=== PATIENT | female | born 1940 | race Caucasian/White ===

== ENCOUNTER 2017-05-25 11:23 | Emergency (ER) | payer MEDICARE, OTHER ==
[2017-05-25 11:32] VITALS: BP 166/82
[2017-05-25] MEDS ORDERED: COLCHICINE 0.6 MG TABLET PO STA (12:29)
[2017-05-25] MEDS ORDERED: predniSONE 20 MG TABLET PO STA (12:30)
[2017-05-25] MEDS ORDERED: predniSONE 20 MG TABLET ONE (12:32)
--- NOTE | 2017-05-25 12:32 | ED Physician Documentation ---
History of Present Illness - Stated complaint Stated Complaint: LEFT SWOLLEN FOOT - Chief complaint Chief Complaint: Ext Problem - History obtained from History obtained from: Patient - History of Present Illness Timing: How many days ago (2) Pain level max: 6 Pain level now: 6 Improved by: rest Worsened by: walking - Additonal information Additional information: Patient is a marnie 76-year-old woman who presents to the emergency department with left foot swelling. States that this started about 2 days ago and has progressed since that time. Is unable to get into see her primary care doctor for another 5 days. She took Motrin without relief at home. Denies any injuries. Review of Systems Constitutional: denies: Fever, Chills Skin: denies: Rash Neurologic: denies: Headache PD PAST MEDICAL HISTORY - Past Medical History Past Medical History: Yes Cardiovascular: Other Respiratory: COPD Endocrine/Autoimmune: None, HyPOthyroidism : Incontinence Other Past Medical History: heart attack (Major) - Past Surgical History Past Surgical History: Yes General: Appendectomy, Colonoscopy Cardiovascular: Other HEENT: Tonsil/Adenoidectomy Derm: Skin cancer surgery - Present Medications Home Medications: Ambulatory Orders Medication Instructions Recorded Confirmed Levothyroxine [Synthroid] 12.5 mg PO DAILY 05/25/17 05/25/17 Lisinopril 25 mg PO BID 05/25/17 05/25/17 Naproxen 500 mg PO BID PRN #10 tablet 05/25/17 Pravastatin [Pravachol] 50 mg PO DAILY 05/25/17 05/25/17 Prednisone 20 mg PO DAILY #5 tablet 05/25/17 hydroCHLOROthiazide [Hydrodiuril] 25 mg PO DAILY 05/25/17 05/25/17 - Allergies Allergies/Adverse Reactions: Allergies Allergy/AdvReac Type Severity Reaction Status Date / Time No Known Drug Allergies Allergy Verified 05/25/17 11:33 - Social History Does the pt smoke?: No Does the pt drink ETOH?: Yes ETOH Use: Beer Does the pt have substance abuse?: No - Immunizations Immunizations are current?: No - POLST Patient has POLST: No PD ED PE NORMAL - Vitals Vital signs reviewed: Yes - General General: Alert and oriented X 3, No acute distress - Derm Derm: Warm and dry - Extremities Extremities: Other (Left foot - Tenderness and swelling to the first metacarpophalangeal joint. There is mild erythema extending from this over the dorsum of the foot. It is swollen and slightly erythematous. No increased warmth. There is tenderness with range of motion of the first MCP joint. Neurovascularly intact. No lymphangitic spread) - Neuro Neuro: Alert and oriented X 3 - Psych Psych: Normal mood, Normal affect Results - Vitals Vitals: Vital Signs - 24 hr 05/25/17 11:30 Temperature 36.6 C Heart Rate 75 Respiratory 18 Rate Blood Pressure 166/82 H O2 Saturation 98 Oxygen O2 Source Room air PD MEDICAL DECISION MAKING - ED course Complexity details: considered differential, d/w patient ED course: Patient is a 76-year-old female who presents to the emergency department what appears to be gout of the left foot. Does not appear to be infectious at this time. We will place her on colchicine and a small dose of prednisone. We will also place her on nonsteroidal anti-inflammatory medications for home. We will have her follow-up closely with her doctor. Patient will return if she fails to improve in the next 24-36 hours. Patient counseled regarding signs and symptoms for which I believe and urgent re-evaluation would be necessary. Patient with good understanding of and agreement to plan and is comfortable going home at this time This document was made in part using voice recognition software. While efforts are made to proofread this document, sound alike and grammatical errors may occur. Departure - Departure Disposition: 01 Home, Self Care Clinical Impression: Acute gout Qualifiers: Gout site: foot Gout etiology: unspecified cause Laterality: left Qualified Code(s): M10.9 - Gout, unspecified Condition: Good Instructions: ED Arthritis Gout, ED Diet Gout Follow-Up: Viraj Posadas MD [Primary Care Provider] - Within 1 week Prescriptions: Naproxen 500 mg PO BID PRN #10 tablet PRN Reason: foot pain Prednisone 20 mg PO DAILY #5 tablet Comments: Return if you worsen. This should greatly improve in the next 24-36 hours. If you are worsening, please return to the emergency department. Your blood pressure was elevated today on check in to the emergency department. This does not mean that you have hypertension, it is a common phenomenon to check into the emergency department and have elevated blood pressure. I recommend that you see your primary care physician within the week to have it rechecked when you're feeling better.
== END 2017-05-25 12:56 | disposition home or self-care (01) ==
LOC: ED 11:23
DX: M10.072 Idiopathic gout, left ankle and foot (principal); R03.0 Elevated blood-pressure reading, without diagnosis of hypertension
CPT/HCPCS: 99283; A9270; J7512

== ENCOUNTER 2017-06-03 15:27 | Outpatient (CLI) | payer MEDICARE, OTHER ==
[2017-06-03 11:51] LABS: BASOPHILS # (AUTO) 0.1 10^3/uL (0.0-0.1); BASOPHILS % (AUTO) 0.8 %; EOSINOPHILS # (AUTO) 0.2 10^3/uL (0.0-0.7); EOSINOPHILS % (AUTO) 2.2 %; HCT - HEMATOCRIT 41.5 % (37.0-47.0); HGB - HEMOGLOBIN 13.9 g/dL (12.0-16.0); LYMPHOCYTES # (AUTO) 1.4 10^3/uL (1.5-3.5); LYMPHOCYTES % (AUTO) 15.1 %; MEAN CORPUSCULAR HEMOGLOBIN 30.7 pg (27.0-31.0); MEAN CORPUSCULAR HGB CONC 33.5 g/dL (32.0-36.0); MEAN CORPUSCULAR VOLUME 91.6 fL (81.0-99.0); MEAN PLATELET VOLUME 7.7 fL (7.9-10.8); MONOCYTES # (AUTO) 0.9 10^3/uL (0.0-1.0); MONOCYTES % (AUTO) 9.8 %; NEUTROPHILS # (AUTO) 6.6 10^3/uL (1.5-6.6); NEUTROPHILS % (AUTO) 72.1 %; RED BLOOD COUNT 4.53 10^6/uL (4.20-5.40); RED CELL DISTRIBUTION WIDTH 13.5 % (12.0-15.0); UNCORRECTED WHITE BLOOD COUNT 9.1 x10^3/uL; WHITE BLOOD COUNT 9.1 x10^3/uL (4.8-10.8)
[2017-06-03 12:17] LABS: ALBUMIN/GLOBULIN RATIO 1.3 (1.0-2.2); BUN - BLOOD UREA NITROGEN 26 mg/dL (6-20); CALCIUM 9.3 mg/dL (8.5-10.3); CARBON DIOXIDE - CO2 26 mmol/L (21-32); CHLORIDE 101 mmol/L (101-111); CHOL/HDL RATIO 3.1 (<4.4); CHOLESTEROL 170 mg/dL; CREATININE 1.2 mg/dL (0.4-1.0); GFR - MDRD 44 (>89); GLUCOSE 112 mg/dL (70-100); HDL CHOLESTEROL 55 mg/dL; HEMOGLOBIN A1C 0.57 g/dL; LDL/HDL RATIO 1.7 (<4.4); POTASSIUM 4.5 mmol/L (3.5-5.0); SODIUM 136 mmol/L (135-145); TOTAL PROTEIN 7.2 g/dL (6.7-8.2); TRIGLYCERIDES 120 mg/dL; VLDL CHOLESTEROL 24 mg/dL
== END 2017-06-03 15:28 | disposition home or self-care (01) ==
LOC: LAB.F 15:27
PROVIDERS: ATTEND Family Medicine
DX: Z00.00 Encounter for general adult medical examination without abnormal findings (principal); E03.9 Hypothyroidism, unspecified; R73.9 Hyperglycemia, unspecified
CPT/HCPCS: 36415; 80053; 80061; 83036; 84443; 85025

== ENCOUNTER 2017-10-21 20:04 | Outpatient (CLI) | payer MEDICARE, OTHER ==
[2017-10-21 18:15] LABS: BASOPHILS # (AUTO) 0.1 10^3/uL (0.0-0.1); BASOPHILS % (AUTO) 0.9 %; EOSINOPHILS # (AUTO) 0.2 10^3/uL (0.0-0.7); EOSINOPHILS % (AUTO) 2.1 %; HCT - HEMATOCRIT 40.5 % (37.0-47.0); HGB - HEMOGLOBIN 13.4 g/dL (12.0-16.0); LYMPHOCYTES # (AUTO) 1.4 10^3/uL (1.5-3.5); LYMPHOCYTES % (AUTO) 19.9 %; MEAN CORPUSCULAR HEMOGLOBIN 30.7 pg (27.0-31.0); MEAN CORPUSCULAR HGB CONC 33.1 g/dL (32.0-36.0); MEAN CORPUSCULAR VOLUME 92.6 fL (81.0-99.0); MEAN PLATELET VOLUME 7.7 fL (7.9-10.8); MONOCYTES # (AUTO) 0.7 10^3/uL (0.0-1.0); MONOCYTES % (AUTO) 9.4 %; NEUTROPHILS # (AUTO) 4.8 10^3/uL (1.5-6.6); NEUTROPHILS % (AUTO) 67.7 %; NUCLEATED RED BLOOD CELLS AUTO 0.1 /100WBC; RED BLOOD COUNT 4.38 10^6/uL (4.20-5.40); RED CELL DISTRIBUTION WIDTH 13.2 % (12.0-15.0); UNCORRECTED WHITE BLOOD COUNT 7.1 x10^3/uL; WHITE BLOOD COUNT 7.1 x10^3/uL (4.8-10.8)
[2017-10-21 19:00] LABS: ALBUMIN/GLOBULIN RATIO 1.3 (1.0-2.2); BILIRUBIN,TOTAL 0.8 mg/dL (0.2-1.0); CALCIUM 9.2 mg/dL (8.5-10.3); CREATININE 1.3 mg/dL (0.4-1.0); POTASSIUM 4.2 mmol/L (3.5-5.0); TOTAL PROTEIN 7.4 g/dL (6.7-8.2)
[2017-10-21 20:23] LABS: HEMOGLOBIN A1C 0.56 g/dL
== END 2017-10-21 20:05 | disposition home or self-care (01) ==
LOC: LAB.S 20:04
PROVIDERS: ATTEND Family Medicine
DX: R73.9 Hyperglycemia, unspecified (principal); E03.9 Hypothyroidism, unspecified; I25.10 Atherosclerotic heart disease of native coronary artery without angina pectoris; N28.9 Disorder of kidney and ureter, unspecified; E78.5 Hyperlipidemia, unspecified; I10 Essential (primary) hypertension
CPT/HCPCS: 36415; 80053; 83036; 84443; 85025

== ENCOUNTER 2017-12-24 14:11 | Outpatient (CLI) | payer MEDICARE, OTHER ==
--- NOTE | 2017-12-25 09:44 | XRAY Report ---
DATE OF SERVICE: 12/24/2017 TWO VIEW CHEST: 12/24/2017 CLINICAL INDICATION: Cough. COMPARISON: 02/02/2015. FINDINGS: Frontal and lateral views of the chest demonstrate changes of previous cardiac surgery. The cardiac silhouette is not enlarged. The lungs remain hyperinflated, suggestive of COPD. No focal consolidation, effusion, or pneumothorax is present. IMPRESSION: STABLE POSTOPERATIVE CHANGES. NO EVIDENCE OF ACUTE CARDIOPULMONARY DISEASE. TD: 12/25/2017 10:43
== END 2017-12-24 14:12 | disposition home or self-care (01) ==
LOC: DI.S 14:11
PROVIDERS: ATTEND Nurse Practitioner Family
DX: R05 Cough (principal)
CPT/HCPCS: 71046

== ENCOUNTER 2018-02-07 11:11 | Outpatient (CLI) | payer MEDICARE, OTHER | END 2018-02-07 11:12 | disposition home or self-care (01) | LOC: LAB.F 11:11 | PROVIDERS: ATTEND Nurse Practitioner Family | DX: M79.672 Pain in left foot (principal) | CPT/HCPCS: 36415; 84550 ==

== ENCOUNTER 2018-04-29 11:30 | Outpatient (CLI) | payer MEDICARE, OTHER ==
[2018-04-29 17:21] LABS: BILIRUBIN,URINE NEGATIVE (NEGATIVE); GLUCOSE, URINE (UA) NEGATIVE (NEGATIVE); KETONES,URINE (UA) NEGATIVE (NEGATIVE); LEUKOCYTE ESTERASE, URINE NEGATIVE (NEGATIVE); NITRITE,URINE NEGATIVE (NEGATIVE); OCCULT BLOOD,URINE NEGATIVE (NEGATIVE); PH,URINE 5.5 PH (5.0-7.5); PROTEIN,URINE NEGATIVE (NEGATIVE); UROBILINOGEN,URINE 0.2 (NORMAL) E.U./dL (NORMAL)
[2018-04-29 17:35] LABS: CLARITY,URINE CLEAR (CLEAR); RBC,URINE 0-5 /HPF (0-5)
[2018-04-29 17:36] LABS: BACTERIA,URINE None Seen /HPF (None Seen); SQUAMOUS EPITHELIAL CELL,UR NONE SEEN (<= Few)
== END 2018-04-29 11:31 ==
LOC: LAB.R 11:30
PROVIDERS: ATTEND Obstetrics & Gynecology
DX: R82.99 Other abnormal findings in urine (principal)
CPT/HCPCS: 81001; 87086

== ENCOUNTER 2018-05-26 08:00 | Outpatient (CLI) | END 2018-05-26 08:01 | disposition home or self-care (01) ==

== ENCOUNTER 2019-04-06 08:00 | Outpatient (CLI) | payer MEDICARE, OTHER ==
[2019-04-06 18:27] LABS: CHOL/HDL RATIO 4.1 (<4.4); CHOLESTEROL 232 mg/dL; HDL CHOLESTEROL 57 mg/dL; LDL CHOLESTEROL,CALCULATED 148 mg/dL; LDL/HDL RATIO 2.6 (<4.4); VLDL CHOLESTEROL 27 mg/dL
== END 2019-04-06 23:59 | disposition home or self-care (01) ==
LOC: LAB.S 08:00
PROVIDERS: ATTEND Nurse Practitioner Family
DX: E78.5 Hyperlipidemia, unspecified (principal)
CPT/HCPCS: 36415; 80061; 83721; 84443

== ENCOUNTER 2019-10-12 08:11 | Outpatient (CLI) | payer MEDICARE, OTHER ==
[2019-10-12 10:15] LABS: BASOPHILS # (AUTO) 0.1 10^3/uL (0.0-0.1); EOSINOPHILS # (AUTO) 0.2 10^3/uL (0.0-0.7); HGB - HEMOGLOBIN 13.3 g/dL (12.0-16.0); LYMPHOCYTES # (AUTO) 1.9 10^3/uL (1.5-3.5); MEAN CORPUSCULAR HEMOGLOBIN 30.4 pg (27.0-31.0); MEAN CORPUSCULAR VOLUME 95.2 fL (81.0-99.0); MEAN PLATELET VOLUME 9.7 fL (7.9-10.8); MONOCYTES # (AUTO) 0.7 10^3/uL (0.0-1.0); MONOCYTES % (AUTO) 9.5 %; NEUTROPHILS # (AUTO) 4.8 10^3/uL (1.5-6.6); PLT - PLATELET COUNT 243 10^3/uL (130-450); RED BLOOD COUNT 4.37 10^6/uL (4.20-5.40); RED CELL DISTRIBUTION WIDTH 12.5 % (12.0-15.0); WHITE BLOOD COUNT 7.7 x10^3/uL (4.8-10.8)
[2019-10-12 10:37] LABS: ALBUMIN 4.2 g/dL (3.2-5.5); ALBUMIN/GLOBULIN RATIO 1.2 (1.0-2.2); ALKALINE PHOSPHATASE 56 IU/L (42-121); ALT ALANINE AMINOTRANSFERASE 19 IU/L (10-60); AST ASPARTATE AMINOTRANSFERASE 19 IU/L (10-42); BILIRUBIN,TOTAL 0.8 mg/dL (0.2-1.0); BUN - BLOOD UREA NITROGEN 36 mg/dL (6-20); CALCIUM 9.3 mg/dL (8.5-10.3); CARBON DIOXIDE - CO2 25 mmol/L (21-32); CHLORIDE 102 mmol/L (101-111); CHOL/HDL RATIO 3.3 (<4.4); CHOLESTEROL 179 mg/dL; CREATININE 1.2 mg/dL (0.4-1.0); GFR - MDRD 43 (>89); GLUCOSE 112 mg/dL (70-100); HDL CHOLESTEROL 55 mg/dL; LDL CHOLESTEROL,CALCULATED 91 mg/dL; LDL/HDL RATIO 1.7 (<4.4); SODIUM 137 mmol/L (135-145); TOTAL PROTEIN 7.8 g/dL (6.7-8.2); VLDL CHOLESTEROL 33 mg/dL
== END 2019-10-12 08:12 | disposition home or self-care (01) ==
LOC: LAB.S 08:11
PROVIDERS: ATTEND Registered Nurse
DX: I10 Essential (primary) hypertension (principal); I25.10 Atherosclerotic heart disease of native coronary artery without angina pectoris; J44.9 Chronic obstructive pulmonary disease, unspecified
CPT/HCPCS: 36415; 80053; 80061; 83721; 84443; 85025

== ENCOUNTER 2019-12-08 14:10 | Outpatient (CLI) | payer MEDICARE, OTHER ==
--- NOTE | 2019-12-08 16:24 | XRAY Report ---
Reason: GOUT, ACUTE, LEFT FOOT Procedure Date: 12/08/2019 Accession Number: [id number] / [id number] Procedure: XRS - Foot 3 View LT CPT Code: Final Report FULL RESULT: EXAM: LEFT FOOT RADIOGRAPHY EXAM DATE: 12/08/2019 02:23 PM. CLINICAL HISTORY: GOUT, ACUTE, LEFT FOOT. COMPARISON: None. TECHNIQUE: 3 views. FINDINGS: Bones: No definite fracture or other bone lesion. Joints: Joint spaces generally well preserved. Subtle erosion along the dorsomedial surface of the first metatarsal head. Soft Tissues: Soft tissue swelling. IMPRESSION: Gout. RADIA
[2019-12-08 17:21] LABS: BILIRUBIN,URINE NEGATIVE (NEGATIVE); GLUCOSE, URINE (UA) NEGATIVE (NEGATIVE); KETONES,URINE (UA) NEGATIVE (NEGATIVE); LEUKOCYTE ESTERASE, URINE NEGATIVE (NEGATIVE); NITRITE,URINE NEGATIVE (NEGATIVE); OCCULT BLOOD,URINE NEGATIVE (NEGATIVE); PROTEIN,URINE NEGATIVE (NEGATIVE); UROBILINOGEN,URINE 0.2 (NORMAL) E.U./dL (NORMAL)
[2019-12-08 17:31] LABS: BACTERIA,URINE Few /HPF (None Seen); CLARITY,URINE HAZY (CLEAR); RBC,URINE 0-5 /HPF (0-5); SQUAMOUS EPITHELIAL CELL,UR FEW Squamous (<= Few)
[2019-12-09 07:04] LABS: ALBUMIN 4.1 g/dL (3.2-5.5); ALBUMIN/GLOBULIN RATIO 1.1 (1.0-2.2); BILIRUBIN,TOTAL 0.9 mg/dL (0.2-1.0); CALCIUM 9.7 mg/dL (8.5-10.3); CREATININE 1.1 mg/dL (0.4-1.0); TOTAL PROTEIN 7.8 g/dL (6.7-8.2)
== END 2019-12-08 14:11 | disposition home or self-care (01) ==
LOC: DI.S 14:10
PROVIDERS: ATTEND Family Medicine
DX: M10.09 Idiopathic gout, multiple sites (principal); N28.9 Disorder of kidney and ureter, unspecified
CPT/HCPCS: 36415; 80053; 81001; 84550

== ENCOUNTER 2020-01-21 08:30 | Outpatient (CLI) | payer MEDICARE, OTHER ==
--- NOTE | 2020-01-21 10:22 | Mammography Report ---
Reason: ROUTINE MAMMO Procedure Date: 01/21/2020 Accession Number: [id number] / [id number] Procedure: MGS - Screening Mammo Dig Bilat CPT Code: Final Report FULL RESULT: EXAM: Screening Mammo Dig Bilat DATE: 01/21/2020 8:53 AM CLINICAL HISTORY: Screening encounter. History of benign left breast biopsy, excisional type in 1984. TECHNIQUE: (B) - Bilateral CC and MLO views were obtained. COMPARISON: 03/25/2014 through 02/20/2011. PARENCHYMAL PATTERN: (A) - The breast(s) demonstrate(s) scattered fibroglandular densities. FINDINGS: In the left lateral breast at the 3:00 position approximately 4.5 cm from the nipple is a isodense approximately 0.6 cm nodule, possibly an intramammary lymph node. This finding should be clarified with additional spot views and ultrasound. There are no suspicious masses, calcifications, or areas of distortion in the right breast. IMPRESSION: Incomplete examination. BI-RADS category 0. RECOMMENDATION: (ADDMU) - Additional views using both Mammography and Ultrasound recommended. Left breast BI-RADS CATEGORY: (0) - Incomplete Examination - need additional evaluation. STANDARD QUALIFYING STATEMENTS: 1. This examination was reviewed with the aid of Computer-Aided Detection (CAD). 2. A negative or benign imaging report should not preclude biopsy if clinically suspicious findings are present. 3. Dense breasts may obscure an underlying neoplasm. 4. This examination was reviewed without the aid of 3D breast imaging (tomosynthesis).
== END 2020-01-21 08:31 | disposition home or self-care (01) ==
LOC: DI.S 08:30
PROVIDERS: ATTEND Internal Medicine
DX: Z12.31 Encounter for screening mammogram for malignant neoplasm of breast (principal); R92.8 Other abnormal and inconclusive findings on diagnostic imaging of breast
CPT/HCPCS: 77067

== ENCOUNTER 2020-05-03 09:33 | Outpatient (CLI) | payer MEDICARE, OTHER ==
--- NOTE | 2020-05-04 12:11 | Mammography Report ---
UNILATERAL LEFT DIGITAL DIAGNOSTIC MAMMOGRAM 3D/2D WITH CAD: 05/03/2020 CLINICAL: Additional evaluation requested from prior study. Comparison is made to exams dated: 01/21/2020 mammogram, 03/25/2014 mammogram, 10/03/2012 mammogram, 01/31/2011 mammogram, 06/06/2009 mammogram, and 01/31/2009 mammogram - [facility]. The tis cindy of left breast is heterogeneously dense. This may lower the sensitivity of mammography. Current study was also evaluated with a Computer Aided Detection (CAD) system. There is a 5 mm oval equal density mass with a circumscribed margin in the left breast at 4 o'clock a nterior depth. This is seen in additional views. No other significant masses or calcifications are seen in the breast. IMPRESSION: INCOMPLETE: NEEDS ADDITIONAL IMAGING EVALUATION The 5 mm oval equal density mass in the left breast is indeterminate. An ultrasound is recommended. This was performed immediately following this exam. This exam was interpreted at Station ID: [id number]. NOTE: For mammograms, a report in lay terms will be sent to the patient. Approximately 15% of breast malignancies will not be visualized mammographically. In the management of a palpable breast mass, a negative mammogram must not discourage biopsy of a clinically suspicious lesion. Electronically Signed By: Echo elizalde/:05/03/2020 11:12:11 ACR BI-RADS Category 0: Incomplete 3340F PARENCHYMAL PATTERN: (D) - The breast(s) demonstrate(s) heterogeneously dense fibroglandular gem cavazos. BI-RADS CATEGORY: (0) - 0 Ultrasound [id number] Immediate follow-up LATERALITY: (B)
--- NOTE | 2020-05-04 12:12 | Ultrasound Report ---
LIMITED ULTRASOUND OF LEFT BREAST: 05/03/2020 CLINICAL: Patient returns today to evaluate a density in the left breast. Comparison is made to exams dated: 05/03/2020 mammogram, 01/21/2020 mammogram, 03/25/2014 mammogram, 10/03/2012 mammogram, 01/31/2011 mammogram, and 06/06/2009 mammogram - [facility]. Color flow and real-time ultrasound of the left breast 3-4 o'clock region were performed. Nielsen scal e images of the real-time examination were reviewed. There is a 0.5 cm x 0.4 cm x 0.3 cm oval cyst with a smooth internal wall in the left breast at 4 o'c lock anterior depth 3 cm from the nipple. This oval cyst is anechoic with a well-defined boundary an d posterior acoustic enhancement. This correlates with mammography findings. Color flow imaging dem onstrates that there is no vascularity present. IMPRESSION: BENIGN There is no sonographic evidence of malignancy. The 0.5 cm x 0.4 cm x 0.3 cm oval cyst in the left breast is consistent with a simple cyst and is luis a ign. Return to annual mammogram screening schedule is recommended. Findings and recommendations were conveyed to the patient at time of exam. This exam was interpreted at Station ID: [id number]. Electronically Signed By: Echo elizalde/:05/03/2020 12:42:00 Ultrasound BI-RADS: 2 Benign BI-RADS CATEGORY: (2) - 2 RECOMMENDATION: (ANNUAL) - Recommend routine annual screening mammography. [id number] return to screening LATERALITY: (B)
== END 2020-05-03 09:34 | disposition home or self-care (01) ==
LOC: DI 09:33
PROVIDERS: ATTEND Internal Medicine
DX: N60.02 Solitary cyst of left breast (principal)
CPT/HCPCS: 76642

== ENCOUNTER 2021-02-16 13:10 | Outpatient (CLI) | payer MEDICARE, OTHER | END 2021-02-16 13:11 | disposition home or self-care (01) | LOC: RT 13:10 | PROVIDERS: ATTEND Internal Medicine | DX: R06.00 Dyspnea, unspecified (principal) | CPT/HCPCS: 94060 ==

== ENCOUNTER 2021-02-20 07:35 | Outpatient (CLI) | payer MEDICARE, OTHER ==
[2021-02-20 14:09] LABS: BASOPHILS # (AUTO) 0.1 10^3/uL (0.0-0.1); BASOPHILS % (AUTO) 0.7 %; EOSINOPHILS # (AUTO) 0.2 10^3/uL (0.0-0.7); EOSINOPHILS % (AUTO) 2.9 %; HCT - HEMATOCRIT 37.9 % (37.0-47.0); HGB - HEMOGLOBIN 11.9 g/dL (12.0-16.0); LYMPHOCYTES # (AUTO) 1.5 10^3/uL (1.5-3.5); LYMPHOCYTES % (AUTO) 17.8 %; MEAN CORPUSCULAR HEMOGLOBIN 29.2 pg (27.0-31.0); MEAN CORPUSCULAR HGB CONC 31.4 g/dL (32.0-36.0); MEAN CORPUSCULAR VOLUME 93.1 fL (81.0-99.0); MEAN PLATELET VOLUME 9.6 fL (7.9-10.8); MONOCYTES # (AUTO) 0.9 10^3/uL (0.0-1.0); MONOCYTES % (AUTO) 10.9 %; NEUTROPHILS # (AUTO) 5.7 10^3/uL (1.5-6.6); NEUTROPHILS % (AUTO) 67.2 %; PLT - PLATELET COUNT 266 10^3/uL (130-450); RED BLOOD COUNT 4.07 10^6/uL (4.20-5.40); WHITE BLOOD COUNT 8.4 x10^3/uL (4.8-10.8)
[2021-02-20 15:19] LABS: ALBUMIN/GLOBULIN RATIO 1.1 (1.0-2.2); ALKALINE PHOSPHATASE 63 IU/L (42-121); ALT ALANINE AMINOTRANSFERASE 17 IU/L (10-60); AST ASPARTATE AMINOTRANSFERASE 18 IU/L (10-42); BILIRUBIN,TOTAL 0.8 mg/dL (0.2-1.0); BUN - BLOOD UREA NITROGEN 34 mg/dL (6-20); CARBON DIOXIDE - CO2 22 mmol/L (21-32); CHLORIDE 106 mmol/L (101-111); CHOLESTEROL 162 mg/dL; CK- CREATINE KINASE 47 IU/L (22-269); CREATININE 1.1 mg/dL (0.4-1.0); GFR - MDRD 48 (>89); GLUCOSE 109 mg/dL (70-100); HDL CHOLESTEROL 54 mg/dL; LDL CHOLESTEROL,CALCULATED 77 mg/dL; LDL/HDL RATIO 1.4 (<4.4); POTASSIUM 4.2 mmol/L (3.5-5.0); SODIUM 135 mmol/L (135-145); TOTAL PROTEIN 7.7 g/dL (6.7-8.2); TRIGLYCERIDES 154 mg/dL; URIC ACID 7.8 mg/dL (2.6-7.2); VLDL CHOLESTEROL 31 mg/dL
[2021-02-20 19:29] LABS: ESTIMATED AVERAGE GLUCOSE 126 mg/dL (70-100)
== END 2021-02-20 07:36 | disposition home or self-care (01) ==
LOC: LAB.S 07:35
PROVIDERS: ATTEND Internal Medicine
DX: I10 Essential (primary) hypertension (principal); R06.09 Other forms of dyspnea; R73.01 Impaired fasting glucose; R53.83 Other fatigue; M10.9 Gout, unspecified; Z79.899 Other long term (current) drug therapy; I25.10 Atherosclerotic heart disease of native coronary artery without angina pectoris
CPT/HCPCS: 36415; 80053; 80061; 82550; 83036; 83721; 83880; 84443; 84550; 85025

== ENCOUNTER 2021-02-28 09:13 | Outpatient (CLI) | payer MEDICARE, OTHER ==
--- NOTE | 2021-02-28 17:31 | CT Report ---
PROCEDURE: CHEST WO INDICATIONS: HX OF SHORTNESS OF BREATH, SCREENING FOR LUNG CA TECHNIQUE: Noncontrast 5 mm thick sections acquired from the pulmonary apices to the posterior costophrenic angl es. 7 mm thick coronal and sagittal MIP reformats were then acquired. For radiation dose reduction, the following was used: automated exposure control, adjustment of mA and/or kV according to patient size. COMPARISON: FINDINGS: Image quality: Excellent. Lungs and pleura: No acute air space opacities. No pleural effusions or pneumothorax. Central and peripheral airways are patent and normal in caliber. Note is made of pulmonary hyperexpansion and wh at appears to be centrilobular emphysema. Mediastinum: Heart size is normal. Moderate coronary artery calcifications. 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 No pericardial effusion. No mediastinal adenopathy by size criteria. Thoracic aorta and central pulmo nary arteries are normal in size. Esophagus is normal in caliber. No hiatal hernia. Bones and chest wall: No suspicious bony lesions. No vertebral body compression fractures. No axil ben or supraclavicular adenopathy by size criteria. The thyroid is normal in size. Abdomen: Visualized upper abdominal solid organs and bowel loops appear normal in the absence of con trast. IMPRESSION: Pulmonary hyperexpansion, centrilobular emphysema, but no evidence of early manifestation of lung car cinoma. Prior CABG. Lung RADS category 1, follow-up CT scanning utilizing low-dose noncontrast technique is recommended i n one year. Reviewed by: Missael Araya MD on 02/28/2021 5:30 PM PDT Approved by: Missael Araya MD on 02/28/2021 5:30 PM PDT Station ID: [id number]
== END 2021-02-28 09:14 | disposition home or self-care (01) ==
LOC: DI 09:13
PROVIDERS: ATTEND Internal Medicine
DX: Z12.2 Encounter for screening for malignant neoplasm of respiratory organs (principal); J43.2 Centrilobular emphysema; Z95.1 Presence of aortocoronary bypass graft

== ENCOUNTER 2021-03-21 08:58 | Outpatient (CLI) | payer MEDICARE, OTHER ==
--- NOTE | 2021-03-22 13:41 | Mammography Report ---
BILATERAL DIGITAL SCREENING MAMMOGRAM 3D/2D: 03/21/2021 CLINICAL: Routine screening. Routine screening. Routine screening. Comparison is made to exams dated: 05/03/2020 mammogram, 01/21/2020 mammogram, 03/25/2014 mammogram, and 10/03/2012 mammogram - [facility]. There are scattered fibroglandular elements in both breasts. No significant masses, calcifications, or other findings are seen in either breast. There has been no significant interval change. IMPRESSION: NEGATIVE There is no mammographic evidence of malignancy. A 1 year screening mammogram is recommended. This exam was interpreted at Station ID: [id number]. NOTE: For mammograms, a report in lay terms will be sent to the patient. Approximately 15% of breast malignancies will not be visualized mammographically. In the management of a palpable breast mass, a negative mammogram must not discourage biopsy of a clinically suspicious lesion. Electronically Signed By: Hugo Johnson M.D. slc/penrad:03/21/2021 09:47:19 ACR BI-RADS Category 1: Negative 3341F PARENCHYMAL PATTERN: (A) - The breast(s) demonstrate(s) scattered fibroglandular densities. BI-RADS CATEGORY: (1) - 1 RECOMMENDATION: (ANNUAL) - Recommend routine annual screening mammography. [id number] 1 year screening LATERALITY: (B)
== END 2021-03-21 08:59 | disposition home or self-care (01) ==
LOC: DI.S 08:58
PROVIDERS: ATTEND Internal Medicine
DX: Z12.31 Encounter for screening mammogram for malignant neoplasm of breast (principal)

== ENCOUNTER 2021-04-25 08:00 | Outpatient (CLI) | payer MEDICARE, OTHER ==
--- NOTE | 2021-04-25 16:27 | XRAY Report ---
PROCEDURE: Knee 4 View LT INDICATIONS: OSTEOARTHRITIS OF LEFT KNEE TECHNIQUE: 4 views of the left knee(s) were acquired. COMPARISON: None. FINDINGS: Bones: No fractures or dislocations. Mild to moderate tricompartmental osteoarthritis is seen more prominent in medial femoral tibial compartment. No suspicious bony lesions. Soft tissues: Moderate suprapatellar joint effusion is seen. No suspicious soft tissue calcification s. IMPRESSION: Mild to moderate tricompartmental osteoarthritis more prominent in medial femoral tibial compartment. Moderate suprapatellar joint effusion. No fracture or dislocation. Reviewed by: Martin Sidhu MD on 04/25/2021 4:25 PM PDT Approved by: Martin Sidhu MD on 04/25/2021 4:25 PM PDT Station ID: [id number]
== END 2021-04-25 23:59 | disposition home or self-care (01) ==
LOC: DI.S 08:00
PROVIDERS: ATTEND Physician Assistant
DX: M17.12 Unilateral primary osteoarthritis, left knee (principal); M25.462 Effusion, left knee

== ENCOUNTER 2022-02-12 22:40 | Outpatient (CLI) | payer MEDICARE, OTHER | END 2022-02-12 22:41 | disposition short-term general hospital (02) | LOC: EMS 22:40 | DX: G89.18 Other acute postprocedural pain (principal); M25.462 Effusion, left knee; M79.89 Other specified soft tissue disorders | CPT/HCPCS: A0425; A0429 ==

== ENCOUNTER 2022-03-06 11:28 | Outpatient (CLI) | payer MEDICARE, OTHER ==
[2022-03-06 11:39] LABS: BASOPHILS # (AUTO) 0.1 10^3/uL (0.0-0.1); BASOPHILS % (AUTO) 1.3 %; EOSINOPHILS # (AUTO) 0.9 10^3/uL (0.0-0.7); EOSINOPHILS % (AUTO) 12.6 %; HCT - HEMATOCRIT 31.3 % (37.0-47.0); HGB - HEMOGLOBIN 9.9 g/dL (12.0-16.0); LYMPHOCYTES # (AUTO) 0.8 10^3/uL (1.5-3.5); LYMPHOCYTES % (AUTO) 12.1 %; MEAN CORPUSCULAR HEMOGLOBIN 29.2 pg (27.0-31.0); MEAN CORPUSCULAR HGB CONC 31.6 g/dL (32.0-36.0); MEAN CORPUSCULAR VOLUME 92.3 fL (81.0-99.0); MEAN PLATELET VOLUME 8.8 fL (7.9-10.8); MONOCYTES # (AUTO) 0.9 10^3/uL (0.0-1.0); MONOCYTES % (AUTO) 13.3 %; NEUTROPHILS # (AUTO) 4.2 10^3/uL (1.5-6.6); NEUTROPHILS % (AUTO) 60.4 %; PLT - PLATELET COUNT 314 10^3/uL (130-450); RED BLOOD COUNT 3.39 10^6/uL (4.20-5.40); WHITE BLOOD COUNT 6.9 x10^3/uL (4.8-10.8)
[2022-03-06 11:54] LABS: BUN - BLOOD UREA NITROGEN 23 mg/dL (6-20); CALCIUM 8.9 mg/dL (8.5-10.3); CARBON DIOXIDE - CO2 24 mmol/L (21-32); CHLORIDE 95 mmol/L (101-111); CRP - C-REACTIVE PROTEIN 1.3 mg/dL (0-1.0); GFR - MDRD 53 (>89); GLUCOSE 110 mg/dL (70-100); POTASSIUM 4.5 mmol/L (3.5-5.0); SODIUM 128 mmol/L (135-145); VANCOMYCIN,TROUGH 10.6 ug/mL (10.0-20.0)
== END 2022-03-06 11:29 | disposition home or self-care (01) ==
LOC: LAB.R 11:28
PROVIDERS: ATTEND Internal Medicine Infectious Disease
DX: T84.54XA Infection and inflammatory reaction due to internal left knee prosthesis, initial encounter (principal)
CPT/HCPCS: 80048; 80202; 85025; 85651; 86140

== ENCOUNTER 2022-03-13 08:00 | Outpatient (CLI) | payer MEDICARE, OTHER ==
[2022-03-13 13:21] LABS: BASOPHILS # (AUTO) 0.1 10^3/uL (0.0-0.1); BASOPHILS % (AUTO) 1.5 %; EOSINOPHILS # (AUTO) 0.7 10^3/uL (0.0-0.7); EOSINOPHILS % (AUTO) 10.1 %; HCT - HEMATOCRIT 35.4 % (37.0-47.0); HGB - HEMOGLOBIN 11.2 g/dL (12.0-16.0); LYMPHOCYTES # (AUTO) 1.1 10^3/uL (1.5-3.5); LYMPHOCYTES % (AUTO) 17.2 %; MEAN CORPUSCULAR HEMOGLOBIN 29.4 pg (27.0-31.0); MEAN CORPUSCULAR HGB CONC 31.6 g/dL (32.0-36.0); MEAN CORPUSCULAR VOLUME 92.9 fL (81.0-99.0); MEAN PLATELET VOLUME 8.7 fL (7.9-10.8); MONOCYTES # (AUTO) 0.7 10^3/uL (0.0-1.0); MONOCYTES % (AUTO) 11.5 %; NEUTROPHILS # (AUTO) 3.8 10^3/uL (1.5-6.6); NEUTROPHILS % (AUTO) 59.2 %; PLT - PLATELET COUNT 277 10^3/uL (130-450); RED BLOOD COUNT 3.81 10^6/uL (4.20-5.40); RED CELL DISTRIBUTION WIDTH 15.1 % (12.0-15.0); WHITE BLOOD COUNT 6.5 x10^3/uL (4.8-10.8)
[2022-03-13 13:32] LABS: BUN - BLOOD UREA NITROGEN 28 mg/dL (6-20); CALCIUM 9.2 mg/dL (8.5-10.3); CARBON DIOXIDE - CO2 25 mmol/L (21-32); CHLORIDE 98 mmol/L (101-111); GFR - MDRD 53 (>89); GLUCOSE 98 mg/dL (70-100); POTASSIUM 4.6 mmol/L (3.5-5.0); SODIUM 133 mmol/L (135-145); VANCOMYCIN,TROUGH 14.5 ug/mL (10.0-20.0)
[2022-03-13 14:54] LABS: CRP - C-REACTIVE PROTEIN < 1.0 mg/dL (0-1.0)
== END 2022-03-13 23:59 | disposition home or self-care (01) ==
LOC: LAB.R 08:00
PROVIDERS: ATTEND Internal Medicine Infectious Disease
DX: T84.54XA Infection and inflammatory reaction due to internal left knee prosthesis, initial encounter (principal)
CPT/HCPCS: 80048; 80202; 85025; 85651; 86140

== ENCOUNTER 2022-03-20 12:24 | Outpatient (CLI) | payer MEDICARE, OTHER ==
[2022-03-20 12:34] LABS: BASOPHILS # (AUTO) 0.1 10^3/uL (0.0-0.1); BASOPHILS % (AUTO) 1.3 %; EOSINOPHILS # (AUTO) 0.6 10^3/uL (0.0-0.7); HCT - HEMATOCRIT 35.5 % (37.0-47.0); HGB - HEMOGLOBIN 11.3 g/dL (12.0-16.0); LYMPHOCYTES # (AUTO) 1.2 10^3/uL (1.5-3.5); LYMPHOCYTES % (AUTO) 14.4 %; MEAN CORPUSCULAR HEMOGLOBIN 29.6 pg (27.0-31.0); MEAN CORPUSCULAR HGB CONC 31.8 g/dL (32.0-36.0); MEAN CORPUSCULAR VOLUME 92.9 fL (81.0-99.0); MEAN PLATELET VOLUME 8.8 fL (7.9-10.8); MONOCYTES # (AUTO) 0.9 10^3/uL (0.0-1.0); MONOCYTES % (AUTO) 10.7 %; NEUTROPHILS # (AUTO) 5.5 10^3/uL (1.5-6.6); PLT - PLATELET COUNT 265 10^3/uL (130-450); RED BLOOD COUNT 3.82 10^6/uL (4.20-5.40); RED CELL DISTRIBUTION WIDTH 15.2 % (12.0-15.0); WHITE BLOOD COUNT 8.3 x10^3/uL (4.8-10.8)
[2022-03-20 12:56] LABS: BUN - BLOOD UREA NITROGEN 29 mg/dL (6-20); CALCIUM 9.3 mg/dL (8.5-10.3); CARBON DIOXIDE - CO2 24 mmol/L (21-32); CHLORIDE 97 mmol/L (101-111); GFR - MDRD 53 (>89); GLUCOSE 99 mg/dL (70-100); POTASSIUM 4.8 mmol/L (3.5-5.0); SODIUM 132 mmol/L (135-145); VANCOMYCIN,TROUGH 18.7 ug/mL (10.0-20.0)
== END 2022-03-20 12:25 | disposition home or self-care (01) ==
LOC: LAB.R 12:24
PROVIDERS: ATTEND Internal Medicine Infectious Disease
DX: T84.54XA Infection and inflammatory reaction due to internal left knee prosthesis, initial encounter (principal)
CPT/HCPCS: 80048; 80202; 85025; 85651; 86140

== ENCOUNTER 2022-03-23 07:36 | Outpatient (CLI) | payer MEDICARE, OTHER ==
[2022-03-23 15:30] LABS: BASOPHILS # (AUTO) 0.1 10^3/uL (0.0-0.1); BASOPHILS % (AUTO) 1.8 %; EOSINOPHILS # (AUTO) 0.6 10^3/uL (0.0-0.7); EOSINOPHILS % (AUTO) 7.3 %; HCT - HEMATOCRIT 37.4 % (37.0-47.0); HGB - HEMOGLOBIN 11.7 g/dL (12.0-16.0); LYMPHOCYTES % (AUTO) 13.2 %; MEAN CORPUSCULAR HEMOGLOBIN 29.5 pg (27.0-31.0); MEAN CORPUSCULAR HGB CONC 31.3 g/dL (32.0-36.0); MEAN CORPUSCULAR VOLUME 94.2 fL (81.0-99.0); MEAN PLATELET VOLUME 9.1 fL (7.9-10.8); MONOCYTES # (AUTO) 0.8 10^3/uL (0.0-1.0); MONOCYTES % (AUTO) 9.8 %; NEUTROPHILS # (AUTO) 5.3 10^3/uL (1.5-6.6); NEUTROPHILS % (AUTO) 67.5 %; PLT - PLATELET COUNT 271 10^3/uL (130-450); RED BLOOD COUNT 3.97 10^6/uL (4.20-5.40); RED CELL DISTRIBUTION WIDTH 15.2 % (12.0-15.0); WHITE BLOOD COUNT 7.9 x10^3/uL (4.8-10.8)
[2022-03-23 15:49] LABS: THYROID STIMULATING HORMONE 5.2 uIU/mL (0.34-5.60)
[2022-03-23 15:55] LABS: ALBUMIN 3.7 g/dL (3.2-5.5); ALBUMIN/GLOBULIN RATIO 0.9 (1.0-2.2); ALKALINE PHOSPHATASE 53 IU/L (42-121); ALT ALANINE AMINOTRANSFERASE 28 IU/L (10-60); AST ASPARTATE AMINOTRANSFERASE 26 IU/L (10-42); BILIRUBIN,TOTAL 0.6 mg/dL (0.2-1.0); BUN - BLOOD UREA NITROGEN 27 mg/dL (6-20); CALCIUM 9.4 mg/dL (8.5-10.3); CARBON DIOXIDE - CO2 24 mmol/L (21-32); CHLORIDE 102 mmol/L (101-111); CHOL/HDL RATIO 2.7 (<4.4); CHOLESTEROL 159 mg/dL; CREATININE 0.9 mg/dL (0.4-1.0); GFR - MDRD 60 (>89); GLUCOSE 104 mg/dL (70-100); HDL CHOLESTEROL 60 mg/dL; LDL CHOLESTEROL,CALCULATED 75 mg/dL; LDL/HDL RATIO 1.3 (<4.4); POTASSIUM 4.7 mmol/L (3.5-5.0); SODIUM 134 mmol/L (135-145); TOTAL PROTEIN 7.9 g/dL (6.7-8.2); TRIGLYCERIDES 122 mg/dL; VLDL CHOLESTEROL 24 mg/dL
== END 2022-03-23 23:59 | disposition home or self-care (01) ==
LOC: LAB.S 07:36
PROVIDERS: ATTEND Registered Nurse
DX: I10 Essential (primary) hypertension (principal); E66.9 Obesity, unspecified; E78.5 Hyperlipidemia, unspecified; E78.00 Pure hypercholesterolemia, unspecified
CPT/HCPCS: 36415; 80053; 80061; 83721; 84443; 85025

== ENCOUNTER 2023-02-20 07:44 | Outpatient (CLI) | payer MEDICARE, OTHER ==
[2023-02-20 14:44] LABS: ALBUMIN/GLOBULIN RATIO 1.1 (1.0-2.2); ALKALINE PHOSPHATASE 68 IU/L (42-121); ALT ALANINE AMINOTRANSFERASE 16 IU/L (10-60); AST ASPARTATE AMINOTRANSFERASE 19 IU/L (10-42); BILIRUBIN,TOTAL 0.7 mg/dL (0.2-1.0); BUN - BLOOD UREA NITROGEN 31 mg/dL (6-20); CARBON DIOXIDE - CO2 25 mmol/L (21-32); CHLORIDE 103 mmol/L (101-111); CHOLESTEROL 175 mg/dL; CREATININE 1.2 mg/dL (0.4-1.0); GFR - MDRD 43 (>89); GLUCOSE 116 mg/dL (70-100); HDL CHOLESTEROL 59 mg/dL; LDL CHOLESTEROL,CALCULATED 91 mg/dL; LDL/HDL RATIO 1.5 (<4.4); POTASSIUM 4.3 mmol/L (3.5-5.0); SODIUM 135 mmol/L (135-145); TOTAL PROTEIN 7.7 g/dL (6.7-8.2); TRIGLYCERIDES 126 mg/dL; VLDL CHOLESTEROL 25 mg/dL
[2023-02-20 15:02] LABS: BASOPHILS # (AUTO) 0.1 10^3/uL (0.0-0.1); BASOPHILS % (AUTO) 0.6 %; EOSINOPHILS # (AUTO) 0.2 10^3/uL (0.0-0.7); EOSINOPHILS % (AUTO) 1.8 %; HCT - HEMATOCRIT 40.3 % (37.0-47.0); HGB - HEMOGLOBIN 12.8 g/dL (12.0-16.0); LYMPHOCYTES # (AUTO) 1.6 10^3/uL (1.5-3.5); LYMPHOCYTES % (AUTO) 14.2 %; MEAN CORPUSCULAR HEMOGLOBIN 29.5 pg (27.0-31.0); MEAN CORPUSCULAR HGB CONC 31.8 g/dL (32.0-36.0); MEAN CORPUSCULAR VOLUME 92.9 fL (81.0-99.0); MEAN PLATELET VOLUME 9.3 fL (7.9-10.8); MONOCYTES # (AUTO) 0.9 10^3/uL (0.0-1.0); MONOCYTES % (AUTO) 8.3 %; NEUTROPHILS # (AUTO) 8.3 10^3/uL (1.5-6.6); NEUTROPHILS % (AUTO) 74.8 %; PLT - PLATELET COUNT 252 10^3/uL (130-450); RED BLOOD COUNT 4.34 10^6/uL (4.20-5.40); RED CELL DISTRIBUTION WIDTH 13.7 % (12.0-15.0); WHITE BLOOD COUNT 11.1 x10^3/uL (4.8-10.8)
[2023-02-20 15:11] LABS: THYROID STIMULATING HORMONE 13.65 uIU/mL (0.34-5.60)
[2023-02-20 15:45] LABS: FREE T4 (FREE THYROXINE) 1.08 ng/dL (0.58-1.64)
== END 2023-02-20 07:45 | disposition home or self-care (01) ==
LOC: LAB.S 07:44
PROVIDERS: ATTEND Nurse Practitioner Family
DX: E78.5 Hyperlipidemia, unspecified (principal); E03.9 Hypothyroidism, unspecified; I10 Essential (primary) hypertension
CPT/HCPCS: 36415; 80053; 80061; 83721; 84439; 84443; 85025

== ENCOUNTER 2023-03-21 11:42 | Outpatient (CLI) | payer MEDICARE, OTHER ==
--- NOTE | 2023-03-21 16:12 | Ultrasound Report ---
PROCEDURE: Duplex Lwr Ext Arterial Bilat INDICATIONS: BILATERAL LEG PAIN TECHNIQUE: Color and pulse Doppler interrogation was performed of both lower extremity arterial systems, with im age documentation. COMPARISON: None FINDINGS: Right lower extremity: Common femoral artery: 105 cm/sec, with triphasic flow. Deep femoral artery: 51 cm/sec, with triphasic flow. Proximal superficial femoral artery: 114 cm/sec, with triphasic flow. Mid superficial femoral artery: 76 cm/sec, with triphasic flow. Distal superficial femoral artery: 67 cm/sec, with triphasic flow. Popliteal artery: 246 cm/sec, with triphasic flow. Posterior tibial artery: 77 cm/sec, with triphasic flow. Anterior tibial artery/dorsalis pedis: 57 cm/sec, with biphasic flow. Nielsen-scale imaging description: Mild diffuse plaque Left lower extremity: Common femoral artery: 1 or 15 cm/sec, with triphasic flow. Deep femoral artery: 70 cm/sec, with triphasic flow. Proximal superficial femoral artery: 148 cm/sec, with triphasic flow. Mid superficial femoral artery: 76 cm/sec, with triphasic flow. Distal superficial femoral artery: 74 cm/sec, with triphasic flow. Popliteal artery: 77 cm/sec, with triphasic flow. Posterior tibial artery: 77 cm/sec, with triphasic flow. Anterior tibial artery/dorsalis pedis: 90 cm/sec, with triphasic flow. Nielsen-scale imaging description: Mild diffuse plaque IMPRESSION: Hemodynamically significant bilateral outflow stenoses. Reviewed by: Delbert Huggins MD on 03/21/2023 4:10 PM PDT Approved by: Delbert Huggins MD on 03/21/2023 4:10 PM PDT Station ID: [id number]
--- NOTE | 2023-03-21 16:45 | Ultrasound Report ---
PROCEDURE: Duplex Ext Veins Bilateral INDICATIONS: AUDIE RIDER TECHNIQUE: Real-time imaging, as well as color and pulse Doppler interrogation, were performed of the deep veins of both legs from the inguinal ligament to the popliteal fossa. COMPARISON: None FINDINGS: The deep veins are normally compressible, and free of intraluminal thrombus. Color and pu lse Doppler demonstrate normal phasic intravascular flow. There is normal augmentation response to d istal compression maneuver. IMPRESSION: No evidence of lower extremity DVT bilaterally. Reviewed by: Delbert Huggins MD on 03/21/2023 4:43 PM PDT Approved by: Delbert Huggins MD on 03/21/2023 4:43 PM PDT Station ID: [id number]
== END 2023-03-21 11:43 | disposition home or self-care (01) ==
LOC: DI 11:42
PROVIDERS: ATTEND Nurse Practitioner Family
DX: I70.203 Unspecified atherosclerosis of native arteries of extremities, bilateral legs (principal)
CPT/HCPCS: 93925; 93970

== ENCOUNTER 2023-04-22 20:26 | Emergency (ER) | payer MEDICARE, OTHER ==
[2023-04-22] MEDS ORDERED: SODIUM CHLORIDE 0.9% 1,000 ML IV STA (20:50)
--- NOTE | 2023-04-22 21:40 | ED Physician Documentation ---
History of Present Illness - Stated complaint Stated Complaint: ABD PX - Chief complaint Chief Complaint: Abd Pain - History obtained from History obtained from: Patient - Additonal information Additional information: The patient comes to the emergency department chief complaint of increasing abdominal cramping and distention for the last few days. She states that 3 nights ago, she began to notice the symptoms coming on. She did eat normally that day, but for the next couple of days, she stated she had no appetite at all. She tried to make herself eat some yogurt but states she just did not feel like eating and she was noticing increasing discomfort in her abdomen at the same time. She has not had a bowel movement for about 4 days and normally she has a bowel movement every day. Patient states she tried some stool softeners and a suppository with no luck. She has been nauseated a little but has not vomited. No fevers or chills. No respiratory symptoms that are new. No dysuria. The patient denies any other complaints at this time. PD PAST MEDICAL HISTORY - Past Medical History Cardiovascular: Hypertension, High cholesterol, Other Respiratory: COPD Endocrine/Autoimmune: HyPOthyroidism : Incontinence - Past Surgical History Past Surgical History: Yes General: Appendectomy, Colonoscopy Cardiovascular: Other HEENT: Tonsil/Adenoidectomy Derm: Skin cancer surgery - Present Medications Home Medications: Ambulatory Orders Medication Instructions Recorded Confirmed Aspirin Chewable [[facility] [place] 81 mg PO DAILY 07/03/20 07/03/20 Aspirin] Levothyroxine Sodium 112 mcg PO DAILY 07/03/20 07/03/20 Pravastatin Sodium 20 mg PO QPM 07/03/20 07/03/20 Ubidecarenone/Vit E Acet [Co Q-10 3 cap PO DAILY 07/03/20 07/03/20 100 mg Softgel] amLODIPine [Norvasc] 2.5 mg PO DAILY 07/03/20 07/03/20 - Allergies Allergies/Adverse Reactions: Allergies Allergy/AdvReac Type Severity Reaction Status Date / Time No Known Drug Allergies Allergy Verified 07/02/20 23:55 - Social History Does the pt smoke?: No Smoking Status: Never smoker Does the pt drink ETOH?: Yes Does the pt have substance abuse?: No - Immunizations Immunizations are current?: No - POLST Patient has POLST: No PD ED PE NORMAL - Vitals Vital signs reviewed: Yes - General General: Alert and oriented X 3, No acute distress, Well developed/nourished, Other (Well-appearing patient in no distress.) - HEENT HEENT: Atraumatic, PERRL, EOMI, Moist mucous membranes - Neck Neck: Supple, no meningeal sign - Cardiac Cardiac: RRR, No murmur, Strong equal pulses - Respiratory Respiratory: No respiratory distress, Clear bilaterally - Abdomen Abdomen: Soft, Other (Moderate diffuse tenderness, no rebound or guarding. Marked distention.) - Derm Derm: Normal color, Warm and dry, No rash - Extremities Extremities: No deformity, No edema - Neuro Neuro: Alert and oriented X 3, Other (Grossly intact) - Psych Psych: Normal mood, Normal affect Results - Vitals Vitals: Vital Signs - 24 hr 04/22/23 04/22/23 04/23/23 20:38 22:34 02:13 Temperature 36 C L Heart Rate 99 82 95 Respiratory 16 18 20 Rate Blood Pressure 124/64 169/87 H 148/67 H O2 Saturation 93 98 95 04/23/23 03:22 Temperature Heart Rate 96 Respiratory 14 Rate Blood Pressure 153/67 H O2 Saturation 96 Oxygen O2 Source Room air - Labs Labs: Laboratory Tests 04/22/23 04/22/23 04/22/23 21:45 21:45 21:45 WBC 13.8 H RBC 4.33 Hgb 12.8 Hct 39.8 MCV 91.9 MCH 29.6 MCHC 32.2 RDW 12.8 Plt Count 279 MPV 8.8 Neut # (Auto) 11.0 H Lymph # (Auto) 1.3 L Cocke # (Auto) 1.3 H Eos # (Auto) 0.1 Baso # (Auto) 0.0 Absolute Nucleated RBC 0.00 Nucleated RBC % 0.0 PT 11.8 INR 1.1 Sodium 135 Potassium 3.6 Chloride 105 Carbon Dioxide 22 Anion Gap 8.0 BUN 31 H Creatinine 1.2 H Estimated GFR (MDRD) 43 L Glucose 117 H Calcium 8.8 Total Bilirubin 0.7 AST 18 ALT 15 Alkaline Phosphatase 62 Total Protein 7.4 Albumin 3.6 Globulin 3.8 Albumin/Globulin Ratio 0.9 L Lipase 35 Urine Color Urine Clarity Urine pH Ur Specific [place] Urine Protein Urine Glucose (UA) Urine Ketones Urine Occult Blood Urine Nitrite Urine Bilirubin Urine Urobilinogen Ur Leukocyte Esterase Urine RBC Urine WBC Ur Squamous Epith Cells Urine Bacteria Ur Microscopic Review Urine Culture Comments 04/22/23 21:55 WBC RBC Hgb Hct MCV MCH MCHC RDW Plt Count MPV Neut # (Auto) Lymph # (Auto) Cocke # (Auto) Eos # (Auto) Baso # (Auto) Absolute Nucleated RBC Nucleated RBC % PT INR Sodium Potassium Chloride Carbon Dioxide Anion Gap BUN Creatinine Estimated GFR (MDRD) Glucose Calcium Total Bilirubin AST ALT Alkaline Phosphatase Total Protein Albumin Globulin Albumin/Globulin Ratio Lipase Urine Color YELLOW Urine Clarity HAZY Urine pH 6.0 Ur Specific [place] 1.020 Urine Protein TRACE Urine Glucose (UA) NEGATIVE Urine Ketones NEGATIVE Urine Occult Blood NEGATIVE Urine Nitrite NEGATIVE Urine Bilirubin NEGATIVE Urine Urobilinogen 0.2 (NORMAL) Ur Leukocyte Esterase SMALL H Urine RBC 0-5 Urine WBC 6-10 H Ur Squamous Epith Cells FEW Squamous Urine Bacteria Few Ur Microscopic Review INDICATED Urine Culture Comments INDICATED - Rads (name of study) CT abdomen pelvis Relevant Findings:: Final report received, See rad report (Adenocarcinoma sigmoid colon, large bowel obstruction) PD Medical Decision Making - ED course Complexity details: reviewed results, re-evaluated patient, considered differential, d/w patient, d/w family ED course: The patient overall was well-appearing and did not appear obstructed; however, her degree of distention and discomfort made me concerned that there was more than just simple constipation going on and I felt she should have a CT scan of the abdomen and pelvis. Her laboratory studies were unremarkable other than a mild white blood cell count elevation at 13. She was sent for CT scan of the abdomen and pelvis, which showed a thickening of the sigmoid colon concerning for adenocarcinoma, and large bowel obstruction. There were no other masses or questionable appearing lymph nodes. I initially spoke with Dr. Grullon, who is on-call for our surgical service and we discussed the pros and cons of the patient staying here. Dr. Grullon stated she was more than willing to do surgery if needed, that this would most likely end up in a permanent colostomy. There is possibility of a less invasive, open procedure if the patient went to bigger facility with colorectal surgery service. As such, it was felt most ideal if the patient could be transferred to a facility with colorectal. I did speak with [facility] who stated that it would be at least a 2 to 3-day wait before they can accept any patients. I did then speak with Dr. Olvera of surgery at [facility] and he did graciously accept the patient in transfer. I explained the whole situation to the patient who is agreeable to transfer and stated that she would like to have surgery if that is what was recommended. The patient was in a fair amount of discomfort and although she had initially declined to have Any narcotic pain medication, she did ultimately change her mind and was given Dilaudid. The patient's stomach was small and contracted on CT and I did not feel NG tube was likely to be helpful at this point in time. Additionally, the surgeons did not recommend it unless there was stomach distention or vomiting. Departure - Departure Disposition: 02 Transfer Acute Care Hosp Clinical Impression: Adenocarcinoma of sigmoid colon, Large bowel obstruction Condition: Serious
[2023-04-22 21:52] LABS: BASOPHILS % (AUTO) 0.3 %; EOSINOPHILS # (AUTO) 0.1 10^3/uL (0.0-0.7); EOSINOPHILS % (AUTO) 0.4 %; HCT - HEMATOCRIT 39.8 % (37.0-47.0); HGB - HEMOGLOBIN 12.8 g/dL (12.0-16.0); LYMPHOCYTES # (AUTO) 1.3 10^3/uL (1.5-3.5); LYMPHOCYTES % (AUTO) 9.6 %; MEAN CORPUSCULAR HEMOGLOBIN 29.6 pg (27.0-31.0); MEAN CORPUSCULAR HGB CONC 32.2 g/dL (32.0-36.0); MEAN CORPUSCULAR VOLUME 91.9 fL (81.0-99.0); MEAN PLATELET VOLUME 8.8 fL (7.9-10.8); MONOCYTES # (AUTO) 1.3 10^3/uL (0.0-1.0); MONOCYTES % (AUTO) 9.7 %; NEUTROPHILS % (AUTO) 79.6 %; PLT - PLATELET COUNT 279 10^3/uL (130-450); RED BLOOD COUNT 4.33 10^6/uL (4.20-5.40); RED CELL DISTRIBUTION WIDTH 12.8 % (12.0-15.0); WHITE BLOOD COUNT 13.8 x10^3/uL (4.8-10.8)
[2023-04-22 21:58] LABS: INR 1.1 (0.8-1.2); PT - PROTHROMBIN TIME 11.8 secs (9.9-12.6)
[2023-04-22 22:11] LABS: ALBUMIN 3.6 g/dL (3.2-5.5); ALBUMIN/GLOBULIN RATIO 0.9 (1.0-2.2); BILIRUBIN,TOTAL 0.7 mg/dL (0.2-1.0); CALCIUM 8.8 mg/dL (8.5-10.3); CREATININE 1.2 mg/dL (0.4-1.0); POTASSIUM 3.6 mmol/L (3.5-5.0); TOTAL PROTEIN 7.4 g/dL (6.7-8.2)
[2023-04-22 22:38] LABS: BILIRUBIN,URINE NEGATIVE (NEGATIVE); GLUCOSE, URINE (UA) NEGATIVE (NEGATIVE); KETONES,URINE (UA) NEGATIVE (NEGATIVE); LEUKOCYTE ESTERASE, URINE SMALL (NEGATIVE); NITRITE,URINE NEGATIVE (NEGATIVE); OCCULT BLOOD,URINE NEGATIVE (NEGATIVE); PROTEIN,URINE TRACE mg/dL (NEGATIVE); UROBILINOGEN,URINE 0.2 (NORMAL) E.U./dL (NORMAL)
[2023-04-22 22:39] LABS: CLARITY,URINE HAZY (CLEAR)
[2023-04-22 22:52] LABS: BACTERIA,URINE Few /HPF (None Seen); RBC,URINE 0-5 /HPF (0-5); SQUAMOUS EPITHELIAL CELL,UR FEW Squamous (<= Few)
[2023-04-23] MEDS ORDERED: iohexoL-300 100 ML VIAL ONE (00:49)
[2023-04-23] MEDS ORDERED: iohexoL-300 100 ML VIAL IVP ONE (01:35)
--- NOTE | 2023-04-23 01:40 | CT Report ---
PROCEDURE: ABDOMEN/PELVIS W INDICATIONS: abd pain, distention, nausea, no BM x 3 days CONTRAST: Omni 300 100ml TECHNIQUE: After the administration of intravenous contrast, 5 mm thick sections acquired from the diaphragms to the symphysis. 5 mm thick coronal and sagittal reformats were acquired. For radiation dose reducti on, the following was used: automated exposure control, adjustment of mA and/or kV according to daisha ent size. COMPARISON: None. FINDINGS: Image quality: Excellent. Lung bases:There is mild atelectasis and scarring in the lung bases. Heart: Heart is normal in size. There is a small hiatal hernia. ABDOMEN: Liver: No mass lesion. There is hypoattenuation of the liver consistent with fatty infiltration as w ell as a small region of focal fatty infiltration anteriorly in the left hepatic lobe. Gallbladder:There is a calcified gallstone within the gallbladder without wall thickening or pericho lecystic fluid. Biliary ducts: No biliary ductal dilatation. Pancreas: Unremarkable. Spleen: Normal in size. Adrenal Glands: No adrenal nodules. Kidneys and Ureters: No hydronephrosis. Stomach and Bowel: Stomach and small bowel loops are normal in caliber and wall thickness. There is segmental wall thickening in the sigmoid colon with associated marked upstream distention of the colo n and multiple air-fluid levels. Small bowel is nondistended. There is colonic diverticulosis without acute diverticulitis. Peritoneum:There is a minimal amount of free fluid in the pelvis. No free air. Ventral Wall: No hernia. Abdominal Nodes: No retroperitoneal or mesenteric adenopathy by size criteria. Vessels: Aorta and inferior vena cava are normal in size. PELVIS: Pelvic Organs: Unremarkable. Bladder: Unremarkable. Pelvic Nodes: No enlarged lymph nodes. Miscellaneous: No inguinal hernias. Bones: Visualized osseous structures demonstrate no suspicious lesions. IMPRESSION: 1. Segmental wall thickening in the sigmoid colon with marked upstream colonic distention and air-flu id levels. 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 2. No definite evidence of metastatic disease in abdomen and pelvis. Findings discussed with Dr. Calderon on 04/23/2023 at 1:35 AM. Reviewed by: Karthik Ceron MD on 04/23/2023 1:38 AM PDT Approved by: Karthik Ceron MD on 04/23/2023 1:38 AM PDT Station ID: [id number]
[2023-04-23] MEDS ORDERED: SODIUM CHLORIDE 0.9% 1,000 ML IV STA (03:17)
[2023-04-23] MEDS ORDERED: HYDROmorphone 1 MG/ML CARPUJECT IVP STA (03:19)
[2023-04-23 03:25] VITALS: BP 153/67
== END 2023-04-23 04:15 | disposition short-term general hospital (02) ==
LOC: ED 20:26
DX: C18.7 Malignant neoplasm of sigmoid colon (principal); K56.699 Other intestinal obstruction unspecified as to partial versus complete obstruction
CPT/HCPCS: 36415; 74177; 80053; 81001; 83690; 85025; 85610; 87077; 87086; 87181; 87635; 96374; 99285; J1170; Q9967; 81003

== ENCOUNTER 2023-04-23 04:17 | Outpatient (CLI) | payer MEDICARE, OTHER | END 2023-04-23 23:59 | disposition short-term general hospital (02) | LOC: EMS 04:17 | PROVIDERS: ATTEND Emergency Medicine | DX: K56.609 Unspecified intestinal obstruction, unspecified as to partial versus complete obstruction (principal) | CPT/HCPCS: A0425; A0426 ==

== ENCOUNTER 2023-05-18 11:40 | Outpatient (CLI) | payer MEDICARE, OTHER ==
[2023-05-18] MEDS ORDERED: iohexoL-300 100 ML VIAL ONE (11:56)
[2023-05-18] MEDS ORDERED: DIATRIZOATE MEGLU/DIATRIZO SOD 30 ML BOTTLE PO ONE ×2 (11:56→13:20)
[2023-05-18] MEDS ORDERED: iohexoL-300 100 ML VIAL IVP ONE (13:20)
--- NOTE | 2023-05-18 19:45 | CT Report ---
PROCEDURE: ABDOMEN/PELVIS W INDICATIONS: DIVERTICULITIS CONTRAST: Nonionic 100ml omni 300 TECHNIQUE: After the administration of nonionic intravenous and oral contrast, 5 mm thick sections acquired from the diaphragms to the symphysis. 5 mm thick coronal and sagittal reformats were acquired. For radi ation dose reduction, the following was used: automated exposure control, adjustment of mA and/or kV according to patient size. COMPARISON: 04/23/[address] FINDINGS: Image quality: Excellent. Lung bases and heart: Unremarkable. Liver: No solid mass. Gallbladder and biliary tree: No biliary distention but there appears to be a small partially calcifi ed gallstone within the gallbladder neck area. No associated gallbladder inflammation. Spleen: No splenomegaly. Pancreas: No pancreatic ductal dilation. Adrenals: No adrenal nodule. Kidneys and ureters: No hydronephrosis. No renal cystic lesion which requires follow up. No solid mas s. Bowel and peritoneum: No bowel distension. No pathologic free fluid. A transverse colon colostomy ext ends to the left anterior abdominal wall without associated operative complication or parastomal rigoberto iation. Lymph nodes: No central or retroperitoneal adenopathy. Vessels: No infrarenal aortic aneurysm. PELVIS Reproductive organs: Unremarkable. Bladder: No abnormal wall thickening, accounting for underdistension. Pelvic lymph nodes: No pelvic adenopathy by size criteria. Bones: No aggressive osseous abnormality. Other: No significant ventral or inguinal hernia. Note is made of relatively prominent diverticulosis along the sigmoid colon but no acute diverticulitis is found. Note is again made of what appears to be focal narrowing of the posterior half of the sigmoid colon as it approaches the rectosigmoid junct ion which may reflect presence of colonic malignancy given the pattern of colonic obstruction in that same area on prior CT scanning. IMPRESSION: Prior operative intervention at the transverse colon with associated abdominal ventral colostomy. The colon beyond this point extends normally into the pelvis, and previous gas distention of the colon s een 04/23/2023 has resolved. A malignant mass may be present at the posterior half of the sigmoid colon given the prior pattern of colonic obstruction and persistent mildly heterogeneous enhancement and morphology of the sigmoid co darwin in that area to the rectosigmoid junction. Reviewed by: Missael Araya MD on 05/18/2023 7:44 PM PDT Approved by: Missael Araya MD on 05/18/2023 7:44 PM PDT Station ID: [id number]
== END 2023-05-18 11:41 | disposition home or self-care (01) ==
LOC: DI 11:40
PROVIDERS: ATTEND Student in an Organized Health Care Education/Training Program
DX: K57.92 Diverticulitis of intestine, part unspecified, without perforation or abscess without bleeding (principal); Z93.3 Colostomy status
CPT/HCPCS: 74177; Q9963; Q9967

== ENCOUNTER 2023-06-07 04:15 | Outpatient (CLI) | payer MEDICARE, OTHER | END 2023-06-07 23:59 | disposition short-term general hospital (02) | LOC: EMS 04:15 | DX: R11.2 Nausea with vomiting, unspecified (principal); R50.9 Fever, unspecified; G89.18 Other acute postprocedural pain | CPT/HCPCS: A0425; A0427; A0888 ==

== ENCOUNTER 2024-02-26 07:11 | Outpatient (CLI) | payer MEDICARE, OTHER ==
[2024-02-26 14:39] LABS: BASOPHILS # (AUTO) 0.1 10^3/uL (0.0-0.1); BASOPHILS % (AUTO) 0.7 %; EOSINOPHILS # (AUTO) 0.2 10^3/uL (0.0-0.7); EOSINOPHILS % (AUTO) 2.4 %; HCT - HEMATOCRIT 41.8 % (37.0-47.0); HGB - HEMOGLOBIN 12.9 g/dL (12.0-16.0); LYMPHOCYTES # (AUTO) 1.3 10^3/uL (1.5-3.5); LYMPHOCYTES % (AUTO) 19.9 %; MEAN CORPUSCULAR HEMOGLOBIN 28.9 pg (27.0-31.0); MEAN CORPUSCULAR HGB CONC 30.9 g/dL (32.0-36.0); MEAN CORPUSCULAR VOLUME 93.7 fL (81.0-99.0); MEAN PLATELET VOLUME 9.7 fL (7.9-10.8); MONOCYTES # (AUTO) 0.7 10^3/uL (0.0-1.0); MONOCYTES % (AUTO) 10.5 %; NEUTROPHILS # (AUTO) 4.4 10^3/uL (1.5-6.6); NEUTROPHILS % (AUTO) 66.4 %; PLT - PLATELET COUNT 254 10^3/uL (130-450); RED BLOOD COUNT 4.46 10^6/uL (4.20-5.40); RED CELL DISTRIBUTION WIDTH 13.8 % (12.0-15.0); WHITE BLOOD COUNT 6.7 x10^3/uL (4.8-10.8)
[2024-02-26 14:57] LABS: ALBUMIN 4.1 g/dL (3.2-5.5); ALBUMIN/GLOBULIN RATIO 1.3 (1.0-2.2); ALKALINE PHOSPHATASE 70 IU/L (42-121); ALT ALANINE AMINOTRANSFERASE 14 IU/L (10-60); AST ASPARTATE AMINOTRANSFERASE 17 IU/L (10-42); BILIRUBIN,TOTAL 0.6 mg/dL (0.2-1.0); BUN - BLOOD UREA NITROGEN 29 mg/dL (6-20); CALCIUM 9.5 mg/dL (8.5-10.3); CARBON DIOXIDE - CO2 24 mmol/L (21-32); CHLORIDE 105 mmol/L (101-111); CHOL/HDL RATIO 3.4 (<4.4); CHOLESTEROL 175 mg/dL; CREATININE 1.1 mg/dL (0.6-1.3); GFR - MDRD 47 (>89); GLUCOSE 112 mg/dL (74-104); HDL CHOLESTEROL 51 mg/dL; LDL CHOLESTEROL,CALCULATED 83 mg/dL; LDL/HDL RATIO 1.6 (<4.4); POTASSIUM 4.6 mmol/L (3.5-4.5); SODIUM 136 mmol/L (135-145); TOTAL PROTEIN 7.3 g/dL (6.4-8.9); TRIGLYCERIDES 206 mg/dL (48-352); VLDL CHOLESTEROL 41 mg/dL
[2024-02-26 15:02] LABS: THYROID STIMULATING HORMONE 4.65 uIU/mL (0.34-5.60)
== END 2024-02-26 07:12 | disposition home or self-care (01) ==
LOC: LAB.S 07:11
PROVIDERS: ATTEND Nurse Practitioner Family
DX: I10 Essential (primary) hypertension (principal); E78.5 Hyperlipidemia, unspecified; E03.9 Hypothyroidism, unspecified
CPT/HCPCS: 36415; 80053; 80061; 83721; 84443; 85025

== ENCOUNTER 2024-03-19 07:00 | Outpatient (CLI) | payer MEDICARE, OTHER ==
--- NOTE | 2024-03-20 11:38 | XRAY Report ---
PROCEDURE: Hip w/Pelvis 2-3V LT INDICATIONS: LEFT HIP PAIN TECHNIQUE: 2 views of the hip were acquired. COMPARISON: CT abdomen pelvis 05/18/2023 FINDINGS: Bones: No fractures or dislocations. No suspicious bony lesions. Moderate bilateral degenerative hip joint space narrowing, left greater than right. Very minimal particular osteophytes are present. No erosions. Generative changes are present in the lower lumbar spine Soft tissues: No suspicious soft tissue calcifications or masses. 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 Reviewed by: Saibha Benedict MD on 03/20/2024 11:37 AM PDT Approved by: Sabiha Benedict MD on 03/20/2024 11:37 AM PDT Station ID: [id number]
== END 2024-03-19 23:59 | disposition home or self-care (01) ==
LOC: DI.S 07:00
PROVIDERS: ATTEND Registered Nurse
DX: M16.0 Bilateral primary osteoarthritis of hip (principal)

== ENCOUNTER 2024-06-18 11:56 | Outpatient (CLI) | payer MEDICARE, OTHER ==
--- NOTE | 2024-06-18 17:02 | XRAY Report ---
PROCEDURE: Chest 3V INDICATIONS: ACUTE EXACERBATION TECHNIQUE: 2 views of the chest were acquired. COMPARISON: 07/03/2020 FINDINGS: Surgical changes and devices: Prior CABG. Lungs and pleura: Diffuse thickening of interstitial markings. No dense consolidations or pleural ef fusions. Mediastinum: Mediastinal contours appear normal. Heart size is normal. Bones and chest wall: No suspicious bony lesions. Overlying soft tissues appear unremarkable. IMPRESSION: Diffuse interstitial thickening may indicate a viral pneumonitis, bronchitis, or interstitial edema. Correlate clinically. Reviewed by: Echo Tejeda MD on 06/18/2024 5:01 PM PDT Approved by: Echo Tejeda MD on 06/18/2024 5:01 PM PDT Station ID: [id number]
== END 2024-06-18 11:57 | disposition home or self-care (01) ==
LOC: DI.S 11:56
PROVIDERS: ATTEND Nurse Practitioner Family
DX: J44.1 Chronic obstructive pulmonary disease with (acute) exacerbation (principal)

== ENCOUNTER 2024-06-26 15:21 | Outpatient (CLI) | payer MEDICARE, OTHER ==
--- NOTE | 2024-06-27 19:56 | DEXA Report ---
PROCEDURE: Dexa Spine and/or Hip INDICATIONS: POST MENOPAUSAL TECHNIQUE: Dual energy x-ray absorptiometry (DEXA) was performed in the regions detailed below. COMPARISON: None. FINDINGS: Lumbar Spine: Bone Mineral Density 1.917 g/cm/cm,T score 6.0. Normal Left Femoral Neck: Bone Mineral Density 0.971 g/cm/cm, T score -0.5. Normal Left Total Hip: Bone Mineral Density 1.068 g/cm/cm,T score 0.5. Normal (T score greater or equal to -1.0: NORMAL) (T score from -1.1 to -2.4: OSTEOPENIA) (T score less than or equal to -2.5 to: OSTEOPOROSIS) IMPRESSION: Normal bone mineralization Patients with diagnosis of osteoporosis or osteopenia should have regular bone mineral density assess ment. For those eligible for Medicare, routine testing is allowed once every 2 years. Testing frequ ency can be increased for patients who have rapidly progressing disease or for those who are receivin g medical therapy to restore bone mass. Reviewed by: Darwin Campuzano MD on 06/27/2024 6:55 PM KWABENA Approved by: Darwin Campuzano MD on 06/27/2024 6:55 PM KWABENA Station ID: [id number]
== END 2024-06-26 15:22 | disposition home or self-care (01) ==
LOC: DI 15:21
PROVIDERS: ATTEND Nurse Practitioner Family
DX: Z78.0 Asymptomatic menopausal state (principal)

== ENCOUNTER 2024-06-30 14:34 | Outpatient (CLI) | payer MEDICARE, OTHER ==
--- NOTE | 2024-07-01 11:38 | Ultrasound Report ---
PROCEDURE: Arterial Duplex Lwr Ext BL INDICATIONS: PVD TECHNIQUE: Color and pulse Doppler interrogation was performed of both lower extremity arterial systems, with im age documentation. COMPARISON: Ultrasound lower extremity arteries dated 03/21/2023 FINDINGS: Right lower extremity: Velocities do not indicate and without a significant stenosis except for the distal SFA and anterior tibial/dorsalis pedis. Spectral broadening is seen throughout the especially in the distal SFA and popliteal. Tardus parvus waveforms seen in the distal SFA, popliteal and below the knee arteries. 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 Spectral broadening is seen in the anterior tibial artery/dorsalis pedis. Triphasic waveforms are see n throughout except in the dorsalis pedis IMPRESSION: RIGHT: Hemodynamically significant stenosis in the distal SFA/popliteal and in the anterior tibial/do rsalis pedis arteries LEFT: Hemodynamic significant stenosis in the anterior tibial/dorsalis pedis Reviewed by: Han Dai MD on 07/01/2024 11:37 AM PDT Approved by: Han Dai MD on 07/01/2024 11:37 AM PDT Station ID: [id number]
--- NOTE | 2024-07-01 14:28 | Ultrasound Report ---
PROCEDURE: Ankle Brachial Index INDICATIONS: PVD TECHNIQUE: Ankle-brachial indices were obtained bilaterally and recorded. COMPARISONS: None. FINDINGS: Right ankle brachial index (ANÍBAL): 0.8 Left ankle brachial index (ANÍBAL): 1.0 Healing potential: Ankle pressures >55 mm Hg in non-diabetics and >80 mm Hg in diabetics are likely to achieve primary h ealing of ischemic foot ulcers. Toe pressures >30 mm Hg are likely to achieve primary healing of ischemic foot ulcers, toe or transme tatarsal amputations. IMPRESSION: Mildly abnormal right ANÍBAL. Normal left ANÍBAL. Reviewed by: Manuel Mijares MD on 07/01/2024 2:27 PM PDT Approved by: Manuel Mijares MD on 07/01/2024 2:27 PM PDT Station ID: [id number]
== END 2024-06-30 14:35 | disposition home or self-care (01) ==
LOC: DI 14:34
PROVIDERS: ATTEND Nurse Practitioner Family
DX: I73.9 Peripheral vascular disease, unspecified (principal)
CPT/HCPCS: 93922; 93925

== ENCOUNTER 2024-08-15 23:03 | Outpatient (CLI) | payer MEDICARE, OTHER | END 2024-08-15 23:04 | disposition short-term general hospital (02) | LOC: EMS 23:03 | DX: R00.1 Bradycardia, unspecified (principal); R06.02 Shortness of breath; R53.1 Weakness; R23.1 Pallor; R11.0 Nausea; R42 Dizziness and giddiness; R53.83 Other fatigue; Z79.01 Long term (current) use of anticoagulants | CPT/HCPCS: A0425; A0427 ==